=== PATIENT | male | born 2000 | race African-American/Black ===

== ENCOUNTER 2023-04-09 19:01 | Emergency (ER) | payer MEDICAID ==
[~2023-04-09] VITALS: Ht 172.7 cm; Wt 72.7 kg
[~2023-04-09 19:01] MED LIST: ALBU6.7H14 INH; AZIT250T PO; BACI3.5O2 EACHEYE; LEVA15HF4 IH; MONT-48 PO; advair
--- NOTE | 2023-04-09 19:33 | NUR ---
Patient stated he has been drinking 1/5th Vodka every several days for the last month and a half. notified.
[2023-04-09] MEDS ORDERED: LORazepam 2 mg/ml vial IV ONE (19:45)
[2023-04-09] MEDS ORDERED: normal saline 1000ml 1,000 ML IV ONE (19:45)
[2023-04-09] MEDS ORDERED: iohexol 350MG/ML 100ml bottle IV ONE (20:11)
--- NOTE | 2023-04-09 20:15 | NUR ---
PATIENT TO CT.
[2023-04-09 20:25] LABS: BASOPHILS % (AUTO) 0.2 % (0-1); EOSINOPHILS % (AUTO) 0.3 % (0-6); HEMATOCRIT 45.3 % (42.0-52.0); LYMPHOCYTES # (AUTO) 1.5 X10'3 (1.1-4.8); LYMPHOCYTES % (AUTO) 9.1 % (21-51); MEAN CORPUSCULAR HEMOGLOBIN 26.8 PG (27.0-31.0); MEAN CORPUSCULAR HGB CONC 33.1 g/dL (33.0-36.5); MEAN CORPUSCULAR VOLUME 80.9 FL (78-98); MEAN PLATELET VOLUME 8.2 FL (7.4-10.4); MONOCYTES % (AUTO) 6.1 % (2-12); NEUTROPHILS # (AUTO) 13.7 X10'3 (1.8-7.7); NEUTROPHILS % (AUTO) 84.3 % (42-75); PLATELET COUNT 282 X10'3 (140-440); RED CELL DISTRIBUTION WIDTH 14.7 % (11.5-14.5); WHITE BLOOD COUNT 16.2 X10'3 (4.5-11.0)
[2023-04-09 20:30] LABS: ALANINE AMINOTRANSFERASE 27 U/L (12-78); ALBUMIN 4.6 G/DL (3.4-5.0); ALBUMIN/GLOBULIN RATIO 1.2 (1.1-1.5); ALKALINE PHOSPHATASE 108 IU/L (46-116); ANION GAP 12 (8-16); ASPARTATE AMINO TRANSFERASE 26 U/L (10-37); BILIRUBIN,TOTAL 0.4 MG/DL (0.1-1.0); BLOOD UREA NITROGEN 7 MG/DL (7-18); BUN/CREATININE RATIO 7.9 (10.0-20.0); CHLORIDE 103 MMOL/L (99-107); CREATININE 0.89 MG/DL (0.60-1.10); GLUCOSE 94 MG/DL (70-104); POTASSIUM 3.4 MMOL/L (3.5-5.1); SODIUM 143 MMOL/L (135-145); TOTAL CARBON DIOXIDE 28.2 MMOL/L (24-32); TOTAL PROTEIN 8.5 G/DL (6.4-8.2); eCRCL 127 ML/MIN; eGFR > 90 ML/MIN
--- NOTE | 2023-04-09 20:30 | NUR ---
PATIENT BACK FROM CT.
[2023-04-09] MEDS ORDERED: CEPH-585 PO (22:02)
[2023-04-09] MEDS ORDERED: HYDR-3965 PO (22:02)
[2023-04-09 22:25] VITALS: BP 118/66; PULSE 103; RESP 29; TEMP 98.6; O2SAT 99
== END 2023-04-09 22:43 | disposition home or self-care (01) ==
LOC: ER 19:02
DX: S21.112A Laceration without foreign body of left front wall of thorax without penetration into thoracic cavity, initial encounter (principal); F41.9 Anxiety disorder, unspecified; J45.909 Unspecified asthma, uncomplicated; Z79.899 Other long term (current) drug therapy; Z79.2 Long term (current) use of antibiotics; X58.XXXA Exposure to other specified factors, initial encounter; Y93.89 Activity, other specified; Y92.89 Other specified places as the place of occurrence of the external cause; Y99.8 Other external cause status
CPT/HCPCS: 36415; 71045; 71275; 80053; 84484; 85025; 93005; 96361; 96374; 99285; J2060; J3490; J7030; Q9967